=== PATIENT | male | born 1985 | race Caucasian/White ===

== ENCOUNTER → 2016-10-01 | Outpatient (CLI) | payer OTHER ==
--- NOTE | 2016-10-01 16:30 | XR ---
Abdomen HISTORY: Right flank pain ABDOMEN: No comparisons Lung bases are not included. Multiple calcifications and skin kidneys, largest upper pole left kidney measures approximately 6 mm. Calcifications of the right kidney measuring only approximately 4 mm, t here may be 5 calcifications present. Bowel gas may obscure detail. Calcifications within the pelvis may represent phleboliths, difficult to exclude a distal ureteral calculus. No bowel obstruction or p neumoperitoneum. IMPRESSION: Bilateral nephrolithiasis.
== END | disposition home or self-care (01) ==
LOC: RADXRMAIN 15:26
PROVIDERS: ATTEND Physician Assistant
DX: N20.0 Calculus of kidney (principal)
CPT/HCPCS: 74000

== ENCOUNTER 2016-10-28 09:14 | Day surgery (SDC) | payer OTHER ==
[2016-10-22 15:46] VITALS: BMI 31.4
[~2016-10-28 09:14] MED LIST: DEXAMETHASONE SOD PHOSPHATE 10 MG/ML 1 ML VIAL IV ONE; LACTATED RINGERS 1,000 ML IV SCH; LIDOCAINE 1% 20 ML VIAL (10MG/ML) FOR IV START INTRADERMA PRN; Pre Op ABX Message 1 EACH MISC MISCELLANE ONE; SCOPOLAMINE 1.5MG/72HR PATCH TRANSDERM ONE; fentaNYL (PF) 50 MCG/ML 2 ML AMP IV PRN
[2016-10-28 09:25] VITALS: TEMP 97.2
--- NOTE | 2016-10-28 10:07 | XR ---
Abdomen HISTORY: Nephrolithiasis, kidney stones Frontal view of the abdomen on 2 images correlated to prior exam dated 10/01/2016 Punctate calcifications are overlying the right kidney as on previous exam measuring only 2-3mm. Left renal calcifications are somewhat obscured by overlying bowel gas however calcification on the left persists measuring approximately 5 mm. Calcifications are again noted within the pelvis which are ind eterminate. The calcification in the distribution of the distal left ureter seen on previous exam is no longer seen. IMPRESSION: Findings are thought to be stable within the kidneys, bilateral nephrolithiasis. There ma y been interval passage of distal left ureteral calculus.
[2016-10-28] MEDS ORDERED: MIDAZOLAM 2 MG/2 ML VIAL ONE (10:36)
[2016-10-28] MEDS ORDERED: fentaNYL (PF) 50 MCG/ML 2 ML AMP ONE (10:36)
[2016-10-28] MEDS ORDERED: KETAMINE 10 MG/ML 20 ML VIAL ONE (10:36)
[2016-10-28] MEDS ORDERED: PROPOFOL 10 MG/ML 20 ML VIAL IV ONE (10:36)
--- NOTE | 2016-10-28 10:40 | P.PN ---
Progress Note - Text ADDENDUM TO HISTORY AND PHYSICAL The patient passed the distal left ureteral calculus last week as it is no longer identifiable on KUB and he no longer has a strong urge to void. He still has a 4-5 mm left renal calculus and he desires ESWL treatment of this instead. He has no further questions in regard to the procedure.
--- NOTE | 2016-10-28 11:25 | P.OP ---
Date of Procedure: 10/28/16 Preoperative Diagnosis: Left renal calculus Postoperative Diagnosis: Left renal calculus Procedure(s) Performed: Extracorporal shockwave lithotripsy Implants: Anesthesia: MAC Surgeon: Trevor Parekh Pathology: none sent Condition: stable Disposition: PACU Indications for Procedure: Operative Findings: The patient is a 31 year old male who recently had severe left flank pain and was found to have a 2x4 mm distal left ureteral calculus or aggregate of two calculi He passed the ureteral calculi but continues to have a 4-5 mm calculus in the mid pole of the left kidney and desires ESWL treatment of it. The patient was taken to the operating suite where intravenous sedation was given. Patient was placed in the supine position on the fluoroscopy table. The calculus in the lateral left kidney was localized using biplanar fluoroscopy. Lithotripsy was performed using the Dornier compact delta unit. Patient received 2500 shocks at level 5 at a rate of 60 shocks per minute. There appeared to be good fragmentation of the calculus. Anesthesia was reversed and the patient was returned to the recovery room awake and in satisfactory condition. Description of Procedure:
[2016-10-28 12:05] VITALS: BP 123/71; PULSE 80; RESP 16
== END 2016-10-28 12:30 | disposition home or self-care (01) ==
LOC: ORWHC2ENDO 09:14
PROVIDERS: ATTEND Urology
DX: N20.0 Calculus of kidney (principal); G43.909 Migraine, unspecified, not intractable, without status migrainosus; Z79.899 Other long term (current) drug therapy
CPT/HCPCS: 74000; 50590; J2250; J1100; J3010; J2704

== ENCOUNTER → 2016-11-01 | Outpatient (CLI) | payer OTHER ==
--- NOTE | 2016-11-01 14:35 | XR ---
EXAMINATION TYPE: XR abdomen 1V DATE OF EXAM: 11/01/2016 12:55 PM CLINICAL HISTORY: Status post left lithotripsy TECHNIQUE: Single supine KUB image of the abdomen is obtained. COMPARISON: None. FINDINGS: At least four 2-3 mm right renal calculi are seen and at least two 1-2 mm left renal calculi are pres ent, similar to the prior exam. The previously described 5 mm calculus is no longer visualized and chanel coxy was intraluminal within the overlying colon. Phleboliths are noted within pelvis, below or at th e level of the ischial spines. Scattered gas is seen in non-distended small bowel loops. Gas and fecal material is seen in non-diste nded colon. There is no visceromegaly or pneumoperitoneum appreciated. The lung bases are clear and t he osseous structures are intact. IMPRESSION: Bilateral stable punctate renal calculi.
== END | disposition home or self-care (01) ==
LOC: RADXRMAIN 12:38
PROVIDERS: ATTEND Urology
DX: N20.0 Calculus of kidney (principal)
CPT/HCPCS: 74000